=== PATIENT | male | born 1995 | race Two or more races ===

== ENCOUNTER 2021-12-06 10:40 | Emergency (ER) | payer OTHER ==
[~2021-12-06] VITALS: Ht 167.6 cm; Wt 86.2 kg
[2021-12-06] MEDS ORDERED: CONCERTA36 MG PO (11:43)
== END 2021-12-06 17:06 | disposition home or self-care (01) ==
LOC: ER 10:40
DX: R19.7 Diarrhea, unspecified (principal)